=== PATIENT | female | born 1970 | race Caucasian/White ===

== ENCOUNTER 2019-05-05 00:01 | Inpatient (IN) ==
[2019-05-05] MEDS ORDERED: ZOFRAN IV ONE (00:32)
[2019-05-05] MEDS ORDERED: NS 1,000 ML IV ONE ×2 (00:32→04:28)
[2019-05-05 01:12] LABS: BASO# 0.02 X1000 (0.0-0.2); BASO% 0.1 % (0.0-0.8); HEMATOCRIT 47.1 % (37.0-47.0); HEMOGLOBIN 16.3 g/dL (12.0-16.0); IMM GRAN# 0.11 X1000 (0.0-0.04); IMM GRAN% 0.4 % (0.0-0.5); LYMPH# 0.56 X1000 (1.2-3.4); MCHC 34.6 g/dL (33-37); MCV 86.6 FL (81-99); MONO# 1.47 X1000 (0.11-0.59); MONO% 5.2 % (1.7-9.3); MPV 10.8 FL (7.4-10.4); NEUT% 92.3 % (42.2-75.2); PLT 274 X1000 (130-400); RBC 5.44 XMIL (4.2-5.4); RDW 12.5 % (11.5-14.5); WBC 28.46 X1000 (4.8-10.8)
[2019-05-05 01:38] LABS: AGAP 17; ALBUMIN 4.6 g/dL (3.5-5.0); ALKALINE PHOSPHATASE 65 U/L (32-104); BUN 19 mg/dL (8-22); CALCIUM 8.8 mg/dL (8.8-10.2); CHLORIDE 103 mmol/L (98-107); COSMO 284; CREATININE 0.7 mg/dL (0.5-0.9); ESTIMATED GFR > 60; GLUCOSE 167 mg/dL (70-104); GOT 18 U/L (10-30); GPT 16 U/L (10-36); POTASSIUM 4.3 mmol/L (3.5-5.1); SODIUM 139 mmol/L (136-145); TCO2 20 mmol/L (25-35); TOTAL PROTEIN 7.1 g/dL (6.3-8.3)
[2019-05-05 01:51] LABS: URINE SOURCE CLEAN CATCH
[2019-05-05 02:00] LABS: BILIRUBIN URINE SMALL (NEGATIVE); BLOOD URINE NEGATIVE (NEGATIVE); COLOR YELLOW; GLUCOSE URINE 1000 mg/dL (NEGATIVE); KETONE URINE 20 mg/dL (NEGATIVE); LEUKOCYTES URINE NEGATIVE (NEGATIVE); NITRITE URINE NEGATIVE (NEGATIVE); PH URINE 5.5; PROTEIN URINE TRACE mg/dL (NEGATIVE); SP GRAVITY URINE 1.036; TURBIDITY URINE CLEAR (CLEAR); UROBILINOGEN URINE 2 mg/dL (NORMAL)
[2019-05-05 02:01] LABS: UR EPITHELIAL CELLS <10 /HPF (<10); URINE BACTERIA NEGATIVE /HPF; URINE RBC <10 /HPF (<10); URINE WBC <10 /HPF (<10)
[2019-05-05] MEDS ORDERED: FLAGYL 500 MG/NS 500 MG/100 ML IVPB IV ONE (04:26)
[2019-05-05] MEDS ORDERED: LEVAQUIN 500 MG/D5W 500 MG/100 ML IVPB IV ONE (04:26)
[2019-05-05] MEDS ORDERED: PHENERGAN IM PRN (04:33)
--- NOTE | 2019-05-05 04:37 | PROVIDER DOCUMENTATION ---
This chart was entered by Hallie Pulido Scribe, acting as scribe for Rafael Smart MD. HPI-Abdominal Pain/GI Problem - General Chief Complaint: Constipation Stated Complaint: CONSTIPATION Time Seen by Provider: 05/05/19 00:06 Source: patient Allergies/Adverse Reactions: Patient Allergies Allergy/AdvReac Type Severity Reaction Status Date / Time Penicillins Allergy Severe RASH Verified 05/05/19 00:24 Home Medications: Home Medication List Medication Instructions Recorded Confirmed Last Taken Type Bupropion [Wellbutrin] 150 mg PO DAILY 05/05/19 05/05/19 Unknown History - History of Present Illness-ABD Nature of Presenting Problems: 48 y/o female presents to the ED with complaint of generalized abdominal pain and constipation with last bowel movement 3-4 days ago. The patient states abdominal cramping started yesterday and has been increasing since that time with hyperactive bowel sounds today and only a small bowel movement after Milk of Magnesia, Fleetz suppository, and enema today. She has been taking Rybelsus for weight loss and dose was increased to 7 mg. 1-1.5 weeks ago as this is her second month taking the medication. She denies known sick contacts, fever, vomiting, and urinary symptoms. History of allergy to penicillin. Abdominal Pain Onset Location: reports: generalized abdomen Pain Radiation: reports: no radiation Quality of Pain: reports: cramping Onset/Duration: reports: 24 hours ago Timing: reports: getting worse Associated Symptoms: reports: constipation. denies: cough, fever/chills, nausea, vomiting Last BM: 3 days ago Rectal Bleeding: reports: none Similar Symptoms Previously?: No Recently seen or treated by another doctor?: No Review of Systems - Adult - REVIEW OF SYSTEMS - ADULT Constitutional: denies: chills, fever, fatique Eyes: reports: no symptoms reported Ears, Nose, Mouth & Throat: reports: no symptoms reported Cardiovascular: reports: no symptoms reported Respiratory: reports: no symptoms reported Gastrointestinal: reports: abdominal pain (generalized), constipation. denies: diarrhea, nausea, vomiting Genitourinary: denies: dysuria, discharge, frequency, hematuria Musculoskeletal: reports: no symptoms reported Integumentary: reports: no symptoms reported Neurological: reports: no symptoms reported Psychiatric: reports: no symptoms reported Endocrine: reports: no symptoms reported Hematologic/Lymphatic: reports: no symptoms reported Allergic/Immunologic: reports: no symptoms reported All Other Systems: Reviewed and Negative Past History - Adult - PAST MEDICAL HISTORY-ADULT Review of Records: reports: Old Records Reviewed, Nursing Assessment Review, Medications Reviewed - IMMUNIZATION STATUS Childhood Immunizations: See Nurse Assessment Flu Vaccine: See Nurse Assessment - SOCIAL HISTORY Smoking: non-smoker Occupation: nurse Physical Exam-General - PHYSICAL EXAM-ADULT Initial Vital Signs Reviewed: Yes - CONSTITUTIONAL General Appearance: alert - RESPIRATORY Respiratory: lungs clear, normal breath sounds, no respiratory distress, no accessory muscle use. negative: rales, rhonchi, wheezing - CARDIOVASCULAR Cardiovascular: regular rate, rhythm, no edema, no gallop - GASTROINTESTINAL (ABDOMEN) Abdominal Exam: normal bowel sounds, soft, tenderness (generalized). negative: distended, guarding - GENITOURINARY Rectal Exam: hemorrhoids (deflated), other (rectal vault empty, no mass or irregularity) - SKIN Integumentary: normal color, warm/dry. negative: diaphoresis - NEUROLOGIC Neurologic: grossly normal Progress - PLAN OF CARE/RESULTS Progress/Plan/Lab Results: Vital Signs - 8 hr 05/05/19 00:06 Temperature 97.3 F L Pulse Rate 107 H Respiratory Rate 20 Blood Pressure 128/78 O2 Sat by Pulse Oximetry 97 Result Diagrams: 05/05/19 00:58 05/05/19 00:58 - REASSESSMENT Reassessment #1 Time Reassessed: 01:15 Status: other (The patient is asleep and seems to be resting comfortably.) - XRAY 1 XRAY Study: Abdomen Impression: Abnormal (Constipation. Per Dr. Smart) - CT/MRI 1 MRI Study: Abdomen, Pelvis Impression: Abnormal, See EMR Report (inflammatory/infectious colitis) - CONSULTS/PCP/HOSPITALIST Notification #1 *Consult/PCP/Hospitalist*: Dr Dailey Time Discussed: 04:36 Consult Disposition: Admit Departure - Departure Date of Disposition Decision: 05/05/19 Time of Disposition Decision: 04:36 DIAGNOSIS: Colitis, Leukocytosis Disposition: ADMITTED INPATIENT 09 Certified Medical Emergency: Emergent Condition: Fair Additional Instructions: ED Follow Up Instructions: You have been treated by a care provider in the Emergency Department. These instructions are being provided to you so you can have an understanding of how to care for yourself upon discharge. Upon discharge from the Emergency Department, you are responsible for making arrangements for follow-up care by a physician of your choice. Take all prescribed medications as directed. Return to the Emergency Department immediately for any new or worsening symptoms. You may call the Physician Referral phone number at [phone] to obtain a list of Physicians who are taking new patients. Referrals and Follow-Ups: None,PCP [NON-STAFF PROVIDER] - - Critical Care Note This patient required my direct & personal management of CC.: No Attestation - Physician/ LIONEL Attestation Patient care was provided by Advanced Practice Provider:: No The physician spent face to face time with patient:: Yes Advanced Practice Provider documentation review:: Supervising physician onsite and consulted in the evaluation and care of this patient. The physician did have a face to face encounter with the patient. This chart was documented by the indicated scribe, (Hallie Pulido, Scribe) and accurately reflects the services I performed and decisions made by me, Rafael Smart MD, as attested by the provider's signature.
[2019-05-05] MEDS ORDERED: DILAUDID IV PRN (04:40)
[2019-05-05] MEDS: FLAGYL 500 MG/NS 500 MG/100 ML IVPB IV SCH ×3 (04:45→15:54)
[2019-05-05 08:19] LABS: INR 1.06; PROTIME 14.3 Seconds (11.0-16.0)
[2019-05-05 08:20] LABS: PTT 28.9 Seconds (22.3-41.8)
--- NOTE | 2019-05-05 08:33 | Diag Imaging Result Doc PS360 ---
EXAM: ABDOMEN FLAT/UPRIGHT INDICATION: constipation, abdo pain TECHNIQUE: 2 views COMPARISON: None. FINDINGS: There are a few gas-filled loops of small bowel on the left side of the abdomen with small air-fluid levels but little distention. These are nonspecific. Consider mild ileus. There is nothing that is specific for obstruction. There is abundant stool in the ascending colon suggesting possible constipation/obstipation. There is no large volume free abdominal gas. There is no evidence of organomegaly. IMPRESSION: Possible constipation/obstipation with nonspecific gas in a few loops of small bowel and only mild distention. Electronically signed by Hans Noyola 05/05/2019 8:31 AM
[2019-05-05 08:37] LABS: AGAP 12; ALBUMIN 3.9 g/dL (3.5-5.0); ALKALINE PHOSPHATASE 51 U/L (32-104); BUN 11 mg/dL (8-22); CALCIUM 8.1 mg/dL (8.8-10.2); CHLORIDE 106 mmol/L (98-107); COSMO 279; CREATININE 0.6 mg/dL (0.5-0.9); ESTIMATED GFR > 60; GLUCOSE 99 mg/dL (70-104); GOT 12 U/L (10-30); GPT 12 U/L (10-36); POTASSIUM 4.3 mmol/L (3.5-5.1); SODIUM 140 mmol/L (136-145); TCO2 23 mmol/L (25-35); TOTAL PROTEIN 5.8 g/dL (6.3-8.3)
[2019-05-05 08:39] LABS: BASO# 0.01 X1000 (0.0-0.2); EOS# 0.02 X1000 (0.0-0.7); EOS% 0.1 % (0.0-10.0); HEMATOCRIT 42.2 % (37.0-47.0); HEMOGLOBIN 14.4 g/dL (12.0-16.0); IMM GRAN# 0.07 X1000 (0.0-0.04); IMM GRAN% 0.3 % (0.0-0.5); LYMPH# 1.25 X1000 (1.2-3.4); LYMPH% 5.4 % (20.5-51.1); MCH 29.8 PG (27-31); MCHC 34.1 g/dL (33-37); MCV 87.4 FL (81-99); MONO% 7.8 % (1.7-9.3); NEUT# 19.88 X1000 (1.4-6.5); NEUT% 86.4 % (42.2-75.2); PLT 262 X1000 (130-400); RBC 4.83 XMIL (4.2-5.4); RDW 12.5 % (11.5-14.5); WBC 23.03 X1000 (4.8-10.8)
--- NOTE | 2019-05-05 08:59 | Diag Imaging Result Doc PS360 ---
EXAM: CT ABD/PELVIS W/IV CONT ONLY INDICATION: abdo pain TECHNIQUE: This exam was performed using automated exposure control, adjustment of mA or kV according to patient size, and/or use of iterative reconstruction technique. COMPARISON: 03/24/2012 FINDINGS: The liver, gallbladder, spleen, pancreas, adrenal glands, and kidneys are grossly unremarkable. The urinary bladder is largely nondistended and is unremarkable, otherwise. There has been a prior hysterectomy. There is trace free fluid layering in the pelvis. There is a long segment of mild mucosal thickening involving the descending colon with mild surrounding inflammatory stranding suggesting nonspecific colitis. There is no evidence of bowel obstruction. The remainder of the GI tract is essentially unremarkable. IMPRESSION: Long segment mild mucosal thickening with surrounding stranding associated with the descending colon suggesting nonspecific colitis. Electronically signed by Hans Noyola 05/05/2019 8:57 AM
[2019-05-05] MEDS ORDERED: SODIUM CHLORIDE 0.9% INJ PRN (12:01)
[2019-05-05] MEDS ORDERED: PHENERGAN IV PRN (12:01)
[2019-05-05] MEDS ORDERED: WELLBUTRIN PO SCH (12:15)
--- NOTE | 2019-05-05 13:09 | HISTORY AND PHYSICAL ---
CHIEF COMPLAINT: Abdominal pain. HISTORY OF PRESENT ILLNESS: This is a 48-year-old, female with an unremarkable past medical history who came to the emergency department because 2 days ago, she reports abdominal cramping that she attributed to consumption of grapes. That abdominal pain started getting worse and worse. The abdominal pain was initially 2-3/10 in intensity. That was getting worse to 8- 9/10. That is the reason why she decided to come to the emergency department. She was having a low appetite. She denies any fever or chills. No nausea or vomiting. Here in the emergency department, she was found to have an acute colitis of uncertain etiology and elevated white cell count so she was admitted for further evaluation and treatment. PAST MEDICAL HISTORY: Anxiety. She is taking Wellbutrin. PAST SURGICAL HISTORY: Partial hysterectomy 6 years ago. ALLERGIES: The patient is allergic to penicillin. SOCIAL HISTORY: The patient works in [employer]. She lives with her . The patient denies drinking alcohol, smoking tobacco, or using illicit drugs. FAMILY HISTORY: Both parents were alcoholic. Father from a stroke and mom from complications of diabetes. REVIEW OF SYSTEMS: Eleven systems were reviewed and all symptoms are related to H and P. PHYSICAL EXAMINATION: VITAL SIGNS: Temperature 98.1 degrees, heart rate 97, respiratory rate 20, blood pressure 120/67, O2 saturation 100% on room air. GENERAL EXAMINATION: This is a 48-year-old, female lying in bed, in no acute distress. CARDIOVASCULAR EXAMINATION: S1 and S2 heard. No murmurs, gallops, or rubs. Regular rate and rhythm. HEENT: Head is normocephalic and atraumatic. NECK: No JVD noted. No carotid bruits. No lymphadenopathy. No thyromegaly. RESPIRATORY EXAMINATION: Clear bilaterally to auscultation. No work of breathing or using accessory muscles. ABDOMEN: Soft. A little bit distended but nontender to palpation. Bowel sounds present. No organomegaly. EXTREMITIES: No clubbing, cyanosis, or edema. Peripheral pulses present in both legs. NEUROLOGICAL EXAMINATION: The patient is alert and oriented x3. Moves 4 extremities. LABORATORY DATA: White cell count from yesterday was 28,000 and today is 23,000. BMP from today revealed normal renal function. ASSESSMENT AND PLAN: Acute colitis. That is the reason why this patient was admitted to the hospital. Abdominal pain is getting a little bit better. We will continue with the current antibiotic management; in this case, Levaquin 750 mg intravenously every 24 hours and Flagyl 500 mg intravenously every 8 hours. We will continue with the same management. We will continue with Dilaudid for pain as needed and also Bentyl before each meal. We will continue with a clear liquid diet and we will advance it as tolerated. I plan is to keep her until the white cell count is almost back to normal. We will continue to monitor this patient closely. cc: Robert Kong MD
[2019-05-05] MEDS: WELLBUTRIN XL PO SCH (13:13)
[2019-05-05] MEDS: PRILOSEC PO SCH (13:13)
[2019-05-05] MEDS: BENTYL PO SCH ×2 (16:27→20:25)
[2019-05-05] MEDS: TYLENOL PO PRN (16:28)
[2019-05-06] MEDS: FLAGYL 500 MG/NS 500 MG/100 ML IVPB IV SCH ×2 (00:28→06:35)
[2019-05-06] MEDS ORDERED: LEVAQUIN 750 MG/D5W 750 MG/150 ML IVPB IV SCH (04:00)
[2019-05-06] MEDS: PRILOSEC PO SCH (06:01)
[2019-05-06 06:06] LABS: AGAP 11; BUN 6 mg/dL (8-22); CALCIUM 7.7 mg/dL (8.8-10.2); CHLORIDE 108 mmol/L (98-107); COSMO 277; CREATININE 0.7 mg/dL (0.5-0.9); ESTIMATED GFR > 60; GLUCOSE 98 mg/dL (70-104); POTASSIUM 3.3 mmol/L (3.5-5.1); SODIUM 140 mmol/L (136-145); TCO2 21 mmol/L (25-35)
[2019-05-06 06:31] LABS: BASO# 0.01 X1000 (0.0-0.2); BASO% 0.1 % (0.0-0.8); EOS# 0.07 X1000 (0.0-0.7); EOS% 0.7 % (0.0-10.0); HEMOGLOBIN 12.1 g/dL (12.0-16.0); IMM GRAN# 0.02 X1000 (0.0-0.04); IMM GRAN% 0.2 % (0.0-0.5); LYMPH# 1.39 X1000 (1.2-3.4); MCH 29.1 PG (27-31); MCHC 32.7 g/dL (33-37); MCV 88.9 FL (81-99); MONO# 0.84 X1000 (0.11-0.59); MONO% 7.9 % (1.7-9.3); NEUT# 8.37 X1000 (1.4-6.5); NEUT% 78.1 % (42.2-75.2); PLT 220 X1000 (130-400); RBC 4.16 XMIL (4.2-5.4); RDW 12.6 % (11.5-14.5)
[2019-05-06 07:37] VITALS: BP 111/61
[2019-05-06] MEDS: WELLBUTRIN XL PO SCH (08:19)
[2019-05-06] MEDS: TYLENOL PO PRN (08:19)
[2019-05-06] MEDS: BENTYL PO SCH ×2 (08:19→11:38)
[2019-05-06] MEDS ORDERED: KLOR-CON PO ONE ×2 (08:39→11:30)
--- NOTE | 2019-05-06 15:48 | DISCHARGE SUMMARY ---
ADMISSION DATE: 05/05/2019 DISCHARGE DATE: 05/06/2019 DISCHARGE DIAGNOSIS: Acute colitis, improved. CONSULTATIONS: None. PROCEDURES: 1. Abdomen x-ray showed possible constipation with nonspecific gas in a few loops of small bowel and only mild distention. 2. Abdomen and pelvis CT showed long segment of mild mucosal thickening with surrounding stranding associated with the descending colon, suggesting nonspecific colitis. HOSPITAL COURSE: This is a 48-year-old, female with unremarkable past medical history who came to the emergency department complaining of two days of abdominal cramping and pain that was getting worse and upon ER evaluation the CT showed acute colitis. We assumed that was infectious colitis so she was placed on Levaquin and Flagyl. White cell count was very elevated at admission at 28,000, but day of discharge had returned back to normal at 10.7. The patient clinically was feeling better, not having any fever and pain started to improve definitely, so at this point she is going to be discharged in stable condition. We have talked to the patient and she said that she can get a referral for GI from her primary care physician. DISCHARGE PHYSICAL EXAMINATION: Vital Signs: Temperature 98.0 degrees, heart rate 77, respiratory 16, blood pressure 111/61. O2 saturation 100% on room air. General Examination: This is a 48-year-old, female lying in bed, in no acute distress. Cardiovascular Exam: S1, S2 heard. No murmurs, gallops, or rubs. Regular rate and rhythm. Respiratory Exam: Clear bilaterally to auscultation. No work of breathing or using accessory muscles. Abdomen: Soft, nontender to palpation. Bowel sounds present. No organomegaly. Extremities: No clubbing, cyanosis, or edema. Peripheral pulses present in both legs. Neurological: The patient is alert and oriented x3. Moves four extremities. DISCHARGE DISPOSITION: Home to self-care. FOLLOWUP: With his primary care physician, Dr. Licea in a week. LIST OF MEDICATIONS: 1. Levaquin 750 mg one tablet p.o. daily for 10 days. 2. Flagyl 500 mg one tablet p.o. three times per day for 10 days. 3. Bentyl 10 mg one tablet p.o. before meals and also at bedtime needed for abdominal pain. TIME DISCHARGING THIS PATIENT: 32 minutes. cc: Robert Kong MD
== END 2019-05-06 12:15 | disposition home or self-care (01) | DRG 392 ==
LOC: P.ED 00:01 → P.MEDSURG 00:02
PROVIDERS: ATTEND Internal Medicine